=== PATIENT | female | born 1950 | race Caucasian/White ===

== ENCOUNTER 2018-04-01 09:44 | Day surgery (SDC) | payer OTHER ==
[~2018-04-01] VITALS: Ht 160 cm; Wt 97.0 kg
[~2018-04-01 09:44] MED LIST: COZAAR50 MG PO; CYMBALTA30 MG PO; CYMBALTA60 MG PO; ERGOCALCIF50000 UNIT PO; HUMALOG100 UNIT/2 SQ; LANTUS 3 M100 UNITS1 SC; LIPITOR10 MG PO; METFORMIN HCL1000 MG PO; NEURONTIN600 MG PO; NORVASC10 MG PO; TRULICITY0.75 MG/0. SC
[2018-04-01 10:32] VITALS: BP 176/74
[2018-04-01 18:15] VITALS: BP 112/57
[2018-04-01 19:25] VITALS: BP 123/60
== END 2018-04-01 19:40 | disposition home or self-care (01) ==
LOC: SDC 09:44
PROVIDERS: Podiatrist Foot & Ankle Surgery
DX: E11.610 Type 2 diabetes mellitus with diabetic neuropathic arthropathy (principal); E11.621 Type 2 diabetes mellitus with foot ulcer; M24.572 Contracture, left ankle; M67.02 Short Achilles tendon (acquired), left ankle; I10 Essential (primary) hypertension; E78.00 Pure hypercholesterolemia, unspecified; Z79.4 Long term (current) use of insulin
CPT/HCPCS: 73650; 76000; 82948; 88304; 88311; J0690; J1100; J2250; J2405; J2710; J2795; J3010; J7643; S0020